=== PATIENT | female | born 1975 | race Caucasian/White ===

== ENCOUNTER 2017-12-24 12:36 | Emergency (ER) | payer BC ==
[~2017-12-24] VITALS: Ht 172.7 cm; Wt 63.5 kg
[~2017-12-24 12:36] MED LIST: CELEXA20 MG PO; DEPO-TESTO100 MG/1 M IM; FLEXERIL PO; IBUPROFEN 200200 M1 PO; IBUPROFEN 800800 M1 PO; PHENTERMINE H37.5 MG PO; TRAMADOL 50 MG50 MG PO; TRAZODONE; TRAZODONE HCL50 MG PO; TROKENDI XR50 MG PO; TYLENOL325 MG PO; ZOFRAN ODT4 MG PO
[2017-12-24] MEDS ORDERED: CELEXA20 MG PO (12:52)
[2017-12-24] MEDS ORDERED: FLEXERIL PO (14:51)
[2017-12-24] MEDS ORDERED: MOBIC15 MG PO (14:51)
[2017-12-24 15:03] VITALS: BP 124/85
== END 2017-12-24 15:04 | disposition home or self-care (01) ==
LOC: M.ERS 12:36
DX: S02.2XXA Fracture of nasal bones, initial encounter for closed fracture (principal); M54.2 Cervicalgia; W01.0XXA Fall on same level from slipping, tripping and stumbling without subsequent striking against object, initial encounter; Y93.89 Activity, other specified; Y92.89 Other specified places as the place of occurrence of the external cause; Y99.8 Other external cause status